=== PATIENT | female | born 2000 | race American Indian/Alaskan Native ===

== ENCOUNTER 2021-10-31 13:39 | Outpatient (CLI) | payer OTHER ==
[2021-10-31 14:23] VITALS: BP 99/54
[2021-10-31] MEDS ORDERED: LACTATED RINGERS 500 ML IV ONE (14:28)
[2021-10-31 14:46] LABS: Bacteria,Urine 1+ /HPF (Negative); Bilirubin,Urine NEG (Negative); Blood,Urine NEG (Negative); Color,Urine Yellow (Yellow); Mucus,Urine FEW /HPF; Protein,Urine <15 mg/dL mg/dL (Negative); Urobilinogen,Urine < 2.0 mg/dL (<2.0)
--- NOTE | 2021-10-31 18:21 | Ultrasound Report ---
ULTRASOUND OBSTETRIC INDICATION / CLINICAL INFORMATION: vaginal spotting. Gestational age and placenta integrity. - Clinical Gestational Age (GA) in weeks, days: 29, 6 TECHNIQUE: Transabdominal. COMPARISON: None available. FINDINGS: Single intrauterine . Biparietal Diameter = 7.5 cm = 30, 1 weeks, days Head Circumference = 27.9 cm = 30, 4 weeks, days Abdominal Circumference = 25.2 cm = 29, 3 weeks, days Femur Length = 5.5 cm = 29, 0 weeks, days Average Ultrasound Age (AUA) = 29, 6 weeks, days Heart Rate: 142 beats per minute. Estimated Weight in grams (if calculated): 1394 Estimated Weight Growth Percentile (if calculated): Not calculated. Position: cephalic. Cervix: Not demonstrated. Placenta: Anterior/right lateral and free of the os. No acute abnormality. Amniotic Fluid Volume: normal Amniotic Fluid Index (CELIA) in cm (if calculated): 10.8. Maternal Adnexa: No significant abnormality. BREATHING MOVEMENT = 2 GROSS BODY MOVEMENT = 2 TONE = 2 QUALITATIVE AMNIOTIC FLUID VOLUME = 2 TOTAL BIOPHYSICAL SCORE = 8/8 IMPRESSION: 1. Single, living intrauterine with estimated sonographic age of 29, 6 weeks, days. 2. No sonographic abnormality of the placenta. 3. Biophysical score 8/8. Signer Name: Agustín Melendez MD Signed: 10/31/2021 6:16 PM Workstation Name: [id number]
== END 2021-10-31 17:13 | disposition home or self-care (01) ==
LOC: TRG 13:39 → APU 13:41 → TRG 17:13
PROVIDERS: ATTEND Obstetrics & Gynecology
DX: O26.853 Spotting complicating pregnancy, third trimester (principal); R10.2 Pelvic and perineal pain; Z3A.29 29 weeks gestation of pregnancy
CPT/HCPCS: 59025; 76816; 76819; 81001; 87086; 96360; 96361